=== PATIENT | female | born 1970 | race Caucasian/White ===

== ENCOUNTER 2019-07-05 16:51 | Emergency (ER) | payer OTHER ==
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
[2019-07-05] MEDS ORDERED: TORAdol 30 mg Injection IM ONE (17:32)
[2019-07-05] MEDS ORDERED: TORAdol 30 mg Injection ONE (17:36)
[2019-07-05 18:21] VITALS: BP 143/85; PULSE 82; O2SAT 97
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
== END 2019-07-05 18:22 | disposition home or self-care (01) ==
LOC: ED 16:51
DX: V43.62XA Car passenger injured in collision with other type car in traffic accident, initial encounter (principal); M54.2 Cervicalgia; I10 Essential (primary) hypertension; E03.9 Hypothyroidism, unspecified; E11.9 Type 2 diabetes mellitus without complications
CPT/HCPCS: 72040; 96372; 99284; J1885